=== PATIENT | female | born 1995 | race Caucasian/White ===

== ENCOUNTER 2021-12-25 10:34 | Emergency (ER) | payer OTHER ==
[~2021-12-25] VITALS: Ht 160 cm; Wt 94.3 kg
--- NOTE | 2021-12-25 11:00 | NUR ---
BIBS for c/o cough and congestion x 4 days, chest tightness since this morning. Oxygen saturation in room air is at 99%. Respiration regular and unlabored. Will continue to monitor the patient.
--- NOTE | 2021-12-25 13:02 | NUR ---
AT BEDSIDE FOR EVAL.
--- NOTE | 2021-12-25 13:14 | NUR ---
COVID SPECIMEN OBTAINED AND SENT TO LAB.
--- NOTE | 2021-12-25 13:22 | NUR ---
IUSS ANALYST AT BEDSIDE FOR CHEST XRAY. WAIVER SIGNED.
--- NOTE | 2021-12-25 13:25 | NUR ---
STEEL TESTER AT BEDSIDE FOR XRAY.
[2021-12-25] MEDS ORDERED: ALBUTEROL SULFATE 8 GM HFA.AER.AD IH ONE (13:30)
[2021-12-25] MEDS ORDERED: ALBU18HF2 INH (14:02)
--- NOTE | 2021-12-25 14:13 | NUR ---
Patient discharged to home in stable condition. Written and verbal after care instructions given. Patient verbalizes understanding of instruction.
[2021-12-25 14:15] VITALS: BP 122/71
== END 2021-12-25 14:15 | disposition home or self-care (01) ==
LOC: ER 10:36
DX: J06.9 Acute upper respiratory infection, unspecified (principal); R06.2 Wheezing; Z20.822 Contact with and (suspected) exposure to COVID-19; R00.0 Tachycardia, unspecified
CPT/HCPCS: 71045; 87426; 99284; C9803